=== PATIENT | female | born 1945 | race Caucasian/White ===

== ENCOUNTER 2016-12-05 21:36 | Emergency (ER) | payer SELFPAY ==
[2016-12-05] MEDS ORDERED: Labetalol HCl 100 MG/20 ML VIAL ONE (22:10)
--- NOTE | 2016-12-05 22:28 | RAD ---
FRONTAL VIEW CHEST 12/05/16 No prior comparison. INDICATION: Hypertension. FINDINGS: There is enlargement of the cardiac silhouette which obscures the left lung base. Bilateral intersti tial reticular opacities are present. No discrete pneumothorax. No obvious effusion. There is osseou s degenerative change. Mild vascular calcification is seen. IMPRESSION: Enlarged cardiac silhouette and bilateral perihilar interstitial prominence. This may relate to CHF with mild edema. POS: [facility]
[2016-12-05 22:34] LABS: Bilirubin Negative (Negative); Blood, Urine Trace (Negative); Clarity Clear (Clear); Glucose, Urine (Dipstick) Negative (Negative); Leukocyte Small (Negative); Nitrite Negative (Negative); Protein, Urine (Dipstick) Negative (Neg-Trace); Specific Gravity, Urine 1.015 (1.005-1.030); Urobilinogen 0.2 mg/dL (0.2-1.0)
[2016-12-05 22:43] LABS: Squamous Epithelial 0-3 HPF (0-3)
[2016-12-05 22:44] LABS: Bacteria/HPF Rare-Few HPF (None Seen)
[2016-12-05 22:57] LABS: #Basophils 0.1 thou/uL (0.0-0.2); #Eosinphils 0.3 thou/uL (0.0-0.7); #Lymphocytes 2.9 thou/uL (1.20-3.40); #Monocytes 0.6 thou/uL (0.11-0.59); #Neutrophils 4.4 thou/uL (1.40-6.50); %Basophils 1.1 % (0.0-1.0); %Eosinophils 3.4 % (0.0-10.0); %Lymphocytes 34.7 % (21.0-51.0); %Monocytes 7.6 % (0.0-10.0); %Neutrophils 53.2 % (42.0-75.0); Hemoglobin 13.2 g/dL (12.0-16.0); Mean Corpuscular HGB CONC 33.8 g/dL (32.0-36.0); Mean Corpuscular Hemoglobin 30.5 pg (27.0-31.0); Mean Corpuscular Volume 90.3 fl (81.0-99.0); Mean Platelet Volume 7.9 fL (7.4-10.4); Platelet Count 199 thou/uL (130-400); RBC Distribution Width 11.5 % (11.5-14.5); Red Blood Cell (RBC) Count 4.32 mill/uL (4.20-5.40); White Blood Cell (WBC) Count 8.2 thou/uL (4.8-10.8)
[2016-12-05 23:07] LABS: PTT 29.7 SEC (22.9-36.1)
[2016-12-05 23:18] LABS: ALT (SGPT) 26 U/L (8-55); AST (SGOT) 27 U/L (5-34); Albumin 3.8 g/dL (3.4-4.8); Alkaline Phosphatase 62 U/L (40-150); Anion Gap 16 mmol/L (10-20); BUN (Urea Nitrogen) 21 mg/dL (9.8-20.1); Bilirubin, Total Less than 0.3 mg/dL (0.2-1.2); CK (CPK) 52 U/L (29-168); Calc. Creatinine Clearance 0 mL/min (70-130); Calcium 9.3 mg/dL (7.8-10.44); Carbon Dioxide 24 mmol/L (23-31); Chloride 106 mmol/L (98-107); Estimated GFR-MDRD 58; Globulin 2.6 g/dL (2.4-3.5); Glucose 100 mg/dL (80-115); Magnesium 2.1 mg/dL (1.6-2.6); Potassium 3.9 mmol/L (3.5-5.1); Protein, Total 6.4 g/dL (6.0-8.3); Sodium 142 mmol/L (136-145)
[2016-12-05 23:19] LABS: CKMB 0.7 ng/mL (0-6.6)
[2016-12-05 23:33] LABS: Troponin I 0.016 ng/mL (< 0.028)
[2016-12-06] MEDS ORDERED: Sulfameth/Trimethoprim DS 800-160mg TAB ONE (00:59)
== END 2016-12-06 01:05 | disposition home or self-care (01) ==
LOC: MADERS 21:36
DX: I10 Essential (primary) hypertension (principal); N39.0 Urinary tract infection, site not specified; Z79.899 Other long term (current) drug therapy
CPT/HCPCS: 71010; 80053; 81001; 82553; 83735; 83880; 84484; 85025; 85610; 85730; 87086; 93005; 96374

== ENCOUNTER 2020-03-10 11:13 | Emergency (ER) | payer MEDICARE | END 2020-03-10 12:00 | disposition home or self-care (01) | LOC: MADERS 11:13 | DX: I16.0 Hypertensive urgency (principal); I10 Essential (primary) hypertension; Z79.899 Other long term (current) drug therapy | CPT/HCPCS: 99283 ==